=== PATIENT | female | born 1985 | race Caucasian/White ===

== ENCOUNTER 2018-04-09 07:10 | Outpatient (CLI) | payer OTHER | END 2018-04-09 07:21 | disposition home or self-care (01) | LOC: LAB 07:10 | DX: O24.319 Unspecified pre-existing diabetes mellitus in pregnancy, unspecified trimester (principal) ==

== ENCOUNTER → 2018-08-17 17:59 | Outpatient (CLI) | payer OTHER | END | disposition home or self-care (01) | LOC: RAD 17:59 | DX: Z01.89 Encounter for other specified special examinations (principal) ==

== ENCOUNTER 2018-10-27 12:13 | Outpatient (CLI) | payer OTHER | END 2018-10-27 12:22 | disposition home or self-care (01) | LOC: LAB 12:13 | DX: E03.8 Other specified hypothyroidism (principal) ==

== ENCOUNTER 2018-11-14 09:23 | Outpatient (CLI) | payer OTHER | END 2018-11-14 09:41 | disposition home or self-care (01) | LOC: LAB 09:23 | DX: Z34.01 Encounter for supervision of normal first pregnancy, first trimester (principal) ==

== ENCOUNTER 2018-12-12 11:08 | Outpatient (CLI) | payer OTHER | END 2018-12-12 11:16 | disposition home or self-care (01) | LOC: LAB 11:08 | DX: Z34.02 Encounter for supervision of normal first pregnancy, second trimester (principal) ==

== ENCOUNTER 2019-01-05 12:31 | Outpatient (CLI) | payer OTHER | END 2019-01-05 14:37 | disposition home or self-care (01) | LOC: LAB 12:31 | DX: Z34.02 Encounter for supervision of normal first pregnancy, second trimester (principal) ==

== ENCOUNTER 2019-01-28 14:31 | Outpatient (CLI) | payer OTHER | END 2019-01-28 14:43 | disposition home or self-care (01) | LOC: LAB 14:31 | DX: D50.8 Other iron deficiency anemias (principal); J15.7 Pneumonia due to Mycoplasma pneumoniae; J20.1 Acute bronchitis due to Hemophilus influenzae; A92.8 Other specified mosquito-borne viral fevers ==

== ENCOUNTER 2019-03-22 06:40 | Outpatient (CLI) | payer OTHER | END 2019-03-22 15:00 | disposition home or self-care (01) | LOC: LAB 06:40 | DX: Z34.03 Encounter for supervision of normal first pregnancy, third trimester (principal) ==

== ENCOUNTER → 2019-03-27 09:13 | Outpatient (CLI) | payer OTHER | END | disposition home or self-care (01) | LOC: LAB 09:13 | DX: Z34.03 Encounter for supervision of normal first pregnancy, third trimester (principal) ==

== ENCOUNTER 2019-05-25 11:50 | Outpatient (CLI) | payer OTHER | END 2019-05-25 11:54 | disposition home or self-care (01) | LOC: LAB 11:50 | DX: D50.8 Other iron deficiency anemias (principal) ==

== ENCOUNTER 2019-05-31 09:37 | Outpatient (CLI) | payer OTHER | END 2019-05-31 12:49 | disposition home or self-care (01) | LOC: NST 09:37 | DX: Z34.83 Encounter for supervision of other normal pregnancy, third trimester (principal) ==

== ENCOUNTER 2019-06-03 09:18 | Inpatient (IN) | payer OTHER ==
[~2019-06-03] VITALS: Ht 149.9 cm; Wt 2.7 kg
[2019-06-03] MEDS ORDERED: PRENATABS RX T1 EACH PO (09:42)
[2019-06-03] MEDS ORDERED: SYNTHROID125 MCG PO (09:42)
== END 2019-06-06 12:59 | disposition home or self-care (01) | DRG 788 ==
LOC: OB/GYN 09:18 → LDR 09:18 → OB/GYN 22:52
PROVIDERS: ADMIT Specialist
PROC: 3E033VJ Introduction of Other Hormone into Peripheral Vein, Percutaneous Approach (ICD-10-PCS; 2019-06-03)
PROC: 4A1HXCZ Monitoring of Products of Conception, Cardiac Rate, External Approach (ICD-10-PCS; 2019-06-03)
PROC: 10D00Z1 Extraction of Products of Conception, Low, Open Approach (ICD-10-PCS; principal; 2019-06-03 17:00)
DX: O65.4 Obstructed labor due to fetopelvic disproportion, unspecified (principal); O99.824 Streptococcus B carrier state complicating childbirth; Z3A.38 38 weeks gestation of pregnancy; Z37.0 Single live birth

== ENCOUNTER 2019-10-21 08:16 | Outpatient (CLI) | payer OTHER ==
[~2019-10-21 08:16] MED LIST: PRENATABS RX T1 EACH PO; SYNTHROID125 MCG PO
== END 2019-10-21 15:00 | disposition home or self-care (01) ==
LOC: LAB 08:16
PROVIDERS: ATTEND Internal Medicine Endocrinology, Diabetes & Metabolism
DX: E06.3 Autoimmune thyroiditis (principal)

== ENCOUNTER → 2022-06-08 | Outpatient (CLI) | payer OTHER | END | disposition home or self-care (01) | LOC: LAB 08:29 | PROVIDERS: ATTEND Internal Medicine Endocrinology, Diabetes & Metabolism | DX: E06.3 Autoimmune thyroiditis (principal); E55.9 Vitamin D deficiency, unspecified; D64.9 Anemia, unspecified; R73.01 Impaired fasting glucose ==

== ENCOUNTER 2022-06-17 11:10 | Outpatient (CLI) | payer OTHER | END 2022-06-17 11:18 | disposition home or self-care (01) | LOC: SONOGRAMA 11:10 | PROVIDERS: ATTEND Internal Medicine Endocrinology, Diabetes & Metabolism | DX: E04.9 Nontoxic goiter, unspecified (principal); E06.3 Autoimmune thyroiditis ==

== ENCOUNTER 2023-01-01 13:13 | Outpatient (CLI) | payer OTHER | END 2023-01-01 13:28 | disposition home or self-care (01) | LOC: MAMO-SONO 13:13 | PROVIDERS: ATTEND Obstetrics & Gynecology | DX: N63.10 Unspecified lump in the right breast, unspecified quadrant (principal); N63.20 Unspecified lump in the left breast, unspecified quadrant; Z12.31 Encounter for screening mammogram for malignant neoplasm of breast ==

== ENCOUNTER 2024-04-27 11:04 | Outpatient (CLI) | payer OTHER | END 2024-04-27 11:22 | disposition home or self-care (01) | LOC: RAD 11:04 | PROVIDERS: ATTEND Surgery | DX: E04.9 Nontoxic goiter, unspecified (principal); R05.9 Cough, unspecified; N60.11 Diffuse cystic mastopathy of right breast; N60.12 Diffuse cystic mastopathy of left breast ==

== ENCOUNTER 2024-05-06 13:56 | Outpatient (CLI) | payer OTHER | END 2024-05-06 14:01 | disposition home or self-care (01) | LOC: SONOGRAMA 13:56 | PROVIDERS: ATTEND Physical Medicine & Rehabilitation | DX: M25.571 Pain in right ankle and joints of right foot (principal) ==